=== PATIENT | female | born 1940 | race Caucasian/White ===

== ENCOUNTER → 2016-09-04 | Outpatient (CLI) | payer OTHER ==
[~2016-09-04] MED LIST: ACETAMINOPHEN PR; ARMOUR THYROID15 MG; ASPIRIN EC81 M1 PO; ASPIRIN PO; ASPIRIN81 MG PO; ATENOLOL PO; AZO CRANBERRY250 MG PO; AZO CRANBERRY450 M1 PO; BACTRIM DS TABL1 TA1 PO; BENADRYL ALLERG25 M1 PO; CALCIUM 500 +1 EAC6 PO; CALCIUM 500 +1 EACH PO; CALCIUM 600 +1 EAC5 PO; CALTRATE PLUS T1 TAB PO; CERTAGEN PO; CETIRIZINE HCL10 MG PO; CITRACAL + D CA1 TA1 PO; CITRACAL PLUS T1 TAB PO; CITRACAL200 M1 PO; CITRUCEL500 MG; CITRUCEL500 MG PO; D-20002000 UNIT PO; FAMOTIDINE PO; FIBER CHOICE PO; FIBER GUMMIES2 GM PO; FIBER GUMMIES2.5 GM PO; FLAGYL PO; FLONASE 0.05% N16 G1; FLONASE 0.05% N16 GM; FLONASE16 GM; LEVOTHYROXINE100 MCG PO; LEVOXYL100 MCG PO; LEVOXYL112 MC1 PO; LEVSIN0.125 M2 PO; MEDROL PO; MIRALAX17 GM DOB; MIRALAX17 GM PO; MULTI VITAMIN1 EACH PO; MULTIPLE VITAM1 EAC1 PO; MYLANTA125 MG PO; MYLANTA400 MG PO; OYSTER CALCIUM500 MG PO; PREDNISONE PO; PROTONIX IVP; RESTASIS32 EA OP; SKELAXIN PO; ST JOSEPH ASPIR81 M1 PO; SYNTHROID PO; SYNTHROID112 MCG PO; SYNTHROID125 PO; THERA-TABS M C1 EACH PO; UNITHROID100 MCG PO; VITAL-D RX TABL1 TAB PO; VITAMIN C PO; VITAMIN D2000 UNI1 PO; VITAMIN D2000 UNIT PO; ZOFRAN ODT4 MG PO; ZYRTEC PO; ZYRTEC10 M1 PO; ZYRTEC10 M2 PO; ZYRTEC5 M1
--- NOTE | ~2016-09-04 | CT57 ---
[facility] A Service of [facility] RADIOLOGY TEXT RESULTS PATIENT: GOSIA EPPS LOCATION: [facility] : 44 UNIT #: [id number] AGE: [address]: Mamadou Kwan MD SEX: F ORDER DR: [id number] [facility] [address] [place], [place] [address] [id number] O MR#: [id number] Acc #: [id number] NAME: GOSIA EPPS : 1940 SEX: F STUDY DATE/TIME: 09/04/2016 12:57 UNIT: [facility] ROOM: STUDY DESCRIPTION: CT Chest Wo Cont Attending Physician: Mamadou Kwan M.D. Ordering Physician: Mamadou Kwan M.D. Primary Care Physician: Rodolfo Zimmerman M.D. MEDICAL IMAGING REPORT This report is preliminary unless electronic signature is present EXAM CT chest 09/04/2016 INDICATIONS Right upper lobe pulmonary nodule. Restaging. TECHNIQUE CT of the thorax without contrast. Coronal and sagittal reconstructions were obtained. This CT exam was performed with one or more of the following radiation dose reduction techniques: automatic exposure control, adjustment of mA and/or kV according to patient size, and iterative reconstruction. COMPARISON CT thorax dated 01/03/2016, 06/14/2015, 06/06/2014 FINDINGS A 6 mm pulmonary nodule in the anterior aspect of the right upper lobe has decreased in size from the March 2014 comparison. The nodule measured 1.1 cm at that time. Nodule has partially calcified confirming a benign etiology. No suspicious pulmonary findings are identified. There are some benign calcified granulomas within the lungs. Central airways are patent. No focal consolidation. Cardiac size is normal. No pericardial or pleural effusion. Thoracic aorta is normal. There is a benign hemangioma in the T10 vertebra. No new osseous abnormalities. IMPRESSION 1. Benign right upper lobe pulmonary nodule has decreased in size from [facility] A Service of [facility] & [facility] RADIOLOGY TEXT RESULTS PATIENT: GOSIA EPPS LOCATION: [facility] : 42 UNIT #: [id number] AGE: [address]: Mamadou Kwan MD SEX: F ORDER DR: March 2014 and has now partially calcified confirming a benign etiology. 2. No new or suspicious pulmonary findings. Dictated by... Lambert Mendoza M.D. THIS IS AN ELECTRONICALLY VERIFIED REPORT Lambert Mendoza M.D. at 09/05/2016 7:50 AM BRIDGER/ephraim TD: 09/04/2016 18:23 JOB #: [id number] MEDICAL IMAGING REPORT Page 1 of 1 COPY
== END | disposition home or self-care (01) ==
LOC: CCAT 12:26
DX: R91.1 Solitary pulmonary nodule (principal)
CPT/HCPCS: 71250

== ENCOUNTER → 2016-11-10 | Day surgery (SDC) | payer OTHER ==
--- NOTE | ~2016-11-10 | OR ---
Unit #: [id number] #: [id number] Patient: GOSIA EPPS [id number] [address] [address] [id number] O MR#: [id number] NAME: GOSIA EPPS ROOM: Date of Procedure: 11/10/2016 Admission Date: 11/10/2016 Surgeon: Singh Quigley M.D. : 1940 Attending Physician: Singh Quigley M.D. Primary Care Physician: Rodolfo Zimmerman M.D. OPERATIVE REPORT PRIMARY CARE PHYSICIAN Dr. Rodolfo Zimmerman. PREOPERATIVE DIAGNOSES The patient has come for surveillance colonoscopy. 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 PROCEDURES PERFORMED Colonoscopy and polypectomy. POSTOPERATIVE DIAGNOSES 1. Single sessile polyp in the cecum. This was about 6 to 7 mm in size and was removed using snare polypectomy. 2. The site of previous polypectomy with high-grade dysplasia, which was marked with Jade ink was normal. There being no residual polyp tissue. 3. Mild sigmoid and descending colon diverticulosis. 4. Rest of the examination up to cecum was normal. The quality of the prep was excellent. RECOMMENDATIONS 1. Follow up results of polyp histology. 2. Consider repeat colonoscopy in 5 years. SEDATION USED MAC. DESCRIPTION OF PROCEDURE Following detailed explanation of the potential risks and complications of a colonoscopy, namely perforation, bleeding, and complications related to sedation, the patient was brought to GI lab and laid in the left lateral decubitus position. A digital rectal examination was performed, which was normal. Lubricated tip of the Olympus video colonoscope was inserted through the anus and advanced under direct vision. The scope was advanced and passed up to sigmoid into descending colon. Scant small diverticula were noticed in this area. The scope tip was then navigated all the way up to cecum with visualization of ileocecal valve and the appendiceal orifice. Preparation was excellent with good visualization and photodocumentation was obtained. Successive segments of the colonic mucosa were examined upon withdrawal. A single sessile polyp was noted in the cecum. This was about 7 mm in size. It was removed using snare polypectomy. The polyp was retrieved and sent for histology. No Unit #: [id number] #: [id number] Patient: GOSIA EPPS additional polyps were noted. Other than the scant diverticula seen in the left side, no additional abnormalities were found. The patient did not have any hemorrhoids at anal verge. Careful attention was paid to the area of the previous polypectomy with high-grade dysplasia, which was tattooed and the area appeared completely clear of any residual polyp tissue. The patient did not have any internal hemorrhoids at anal verge. The scope was then withdrawn. The patient returned to the recovery area. She tolerated the procedure without any postprocedure complications. Dictated by... Ame Herbert/darcy TD: 11/10/2016 23:01 JOB #: [id number] OPERATIVE REPORT Page 1 of 1 X Singh Quigley MD X PROCEDURE OPERATIVE NOTE
== END | disposition home or self-care (01) ==
LOC: COPS 10:08
DX: Z12.11 Encounter for screening for malignant neoplasm of colon (principal); D12.0 Benign neoplasm of cecum; K57.30 Diverticulosis of large intestine without perforation or abscess without bleeding; E03.9 Hypothyroidism, unspecified; J45.909 Unspecified asthma, uncomplicated; K21.9 Gastro-esophageal reflux disease without esophagitis; M81.0 Age-related osteoporosis without current pathological fracture; Z86.718 Personal history of other venous thrombosis and embolism; Z87.19 Personal history of other diseases of the digestive system; Z86.010 Personal history of colon polyps; Z87.440 Personal history of urinary (tract) infections; Z86.79 Personal history of other diseases of the circulatory system; Z88.1 Allergy status to other antibiotic agents; Z88.2 Allergy status to sulfonamides; Z88.6 Allergy status to analgesic agent; Z88.8 Allergy status to other drugs, medicaments and biological substances; Z91.041 Radiographic dye allergy status; Z79.82 Long term (current) use of aspirin; Z79.899 Other long term (current) drug therapy; Z90.13 Acquired absence of bilateral breasts and nipples; Z90.710 Acquired absence of both cervix and uterus; Z90.49 Acquired absence of other specified parts of digestive tract; Z98.890 Other specified postprocedural states
CPT/HCPCS: 82947; 88305

== ENCOUNTER 2016-12-23 23:38 | Emergency (ER) | payer OTHER ==
[~2016-12-23] VITALS: Ht 165.1 cm; Wt 61.7 kg
--- NOTE | ~2016-12-23 | CR72 ---
[facility] A Service of [facility] & [facility] RADIOLOGY TEXT RESULTS PATIENT: GOSIA EPPS LOCATION: [facility] : 42 UNIT #: [id number] AGE: [address]: Skyler Greer MD SEX: F ORDER DR: [id number] [facility] [address] [place], [place] [address] [id number] MR#: [id number] Acc #: [id number] NAME: GOSIA EPPS : 1940 SEX: F STUDY DATE/TIME: 12/24/2016 01:12 UNIT: [facility] ROOM: STUDY DESCRIPTION: CR Chest Single View Portable Attending Physician: Skyler Greer Referring Physician: Rodolfo Zimmerman M.D. Ordering Physician: Skyler Greer, [id number] Primary Care Physician: Rodolfo Zimmerman M.D. MEDICAL IMAGING REPORT This report is preliminary unless electronic signature is present EXAM Portable chest 12/24/2016 at 0112 INDICATION Nausea, chest pain, and headache for 1 week. History of breast cancer. FINDINGS AP portable chest compared with 05/20/2016. Cardiac and mediastinal contours are normal. The lungs are clear except for a few granulomatous calcifications. There is no pneumothorax. IMPRESSION No active disease and no significant interval change. Dictated by... León Tsang Jr., M.D. THIS IS AN ELECTRONICALLY VERIFIED REPORT León Tsang Jr., M.D. at 12/24/2016 9:39 PM MARK/jesus TD: 12/24/2016 10:03 JOB #: [id number] MEDICAL IMAGING REPORT Page 1 of 1 COPY
--- NOTE | ~2016-12-23 | EKG ---
PATIENT: GOSIA EPPS UNIT #: [id number] Ventricular Rate: 73 BPM Atrial Rate: 73 BPM P-R Interval: 138 ms QRS Duration: 80 ms Q-T Interval: 376 ms QTC Calculation(Bezet): 414 ms P [place]: 74 degrees Calculated R [place]: 62 degrees Calculated T [place]: 65 degrees Diagnosis Line: Normal sinus rhythm Diagnosis Line: Possible Left atrial enlargement Diagnosis Line: Borderline ECG Diagnosis Line: No previous ECGs available Diagnosis Line: Confirmed by CELY BAKER MD ([id number]) on Diagnosis Line: 12/24/2016 11:58:03 AM INTERPRETING MD: OLIVIA BURNS
[~2016-12-23 23:38] MED LIST changes: -D-20002000 UNIT PO; -MIRALAX17 GM PO; -MULTIPLE VITAM1 EAC1 PO; -SYNTHROID112 MCG PO
[2016-12-24 00:38] LABS: BASOPHIL# 0.1 X10e3 (0-0.3); BASOPHIL% 0.6 % (0-2.5); EOSINOPHIL% 0.4 % (0.0-7.0); HEMATOCRIT 43.6 % (35.0-45.0); HEMOGLOBIN 14.2 gm/dL (12.0-16.0); LYMPHOCYTE# 1.7 X10e3 (1.0-3.5); MEAN CELL VOLUME 90.4 FL (83-96); MEAN CORPUSCULAR HEMOGLOBIN 29.5 PG (28-34); MEAN CORPUSCULAR HGB CONC 32.6 g/dL (30-36); MEAN PLATELET VOLUME 8.4 FL (6.5-11.5); MONOCYTE# 0.6 X10e3 (0-1.0); MONOCYTE% 7.1 % (3.0-12.0); NEUTROPHIL# 6.5 X10e3 (1.5-7.1); NEUTROPHIL% 72.9 % (40-75); PLATELET COUNT 213 X10e3 (140-420); RED BLOOD COUNT 4.82 X10e (3.90-5.30); RED CELL DISTRIBUTION WIDTH 14.4 % (11.0-15.5); WHITE BLOOD COUNT 8.9 X10e3 (4.0-10.5)
[2016-12-24 00:40] LABS: DIFF IND NO
[2016-12-24 00:41] LABS: POC - CKMB <1.0 ng/mL (0.0-7.9); POC - TROPONIN <0.05 ng/mL (<=0.05)
[2016-12-24 00:50] LABS: URINE SOURCE CLEAN CATCH
[2016-12-24] MEDS ORDERED: AZO CRANBERRY250 MG PO (00:53)
[2016-12-24] MEDS ORDERED: D-20002000 UNIT PO (00:53)
[2016-12-24] MEDS ORDERED: ASPIRIN81 MG PO (00:53)
[2016-12-24] MEDS ORDERED: ZYRTEC10 M1 PO (00:53)
[2016-12-24] MEDS ORDERED: MIRALAX17 GM PO (00:54)
[2016-12-24] MEDS ORDERED: SYNTHROID112 MCG PO (00:54)
[2016-12-24] MEDS ORDERED: MULTIPLE VITAM1 EAC1 PO (00:54)
[2016-12-24] MEDS ORDERED: FIBER GUMMIES2 GM PO (00:54)
[2016-12-24 00:55] LABS: URINE APPEARANCE CLEAR; URINE BILIRUBIN NEG (NEG); URINE BLOOD NEG (NEG); URINE COLOR YELLOW; URINE GLUCOSE NEG (NEG); URINE KETONE NEG (NEG); URINE LEUKOCYTE ESTERASE NEG (NEG); URINE NITRATE NEG (NEG); URINE PH 6.5 (5-8); URINE PROTEIN NEG (NEG); URINE SPECIFIC GRAVITY 1.009 (1.003-1.035); URINE UROBILINOGEN 0.2 MG/DL (NEG)
[2016-12-24 00:57] LABS: CULTURE INDICATED? NO
[2016-12-24 01:00] LABS: ALBUMIN SERUM 4.2 g/dL (3.5-5.0); BILIRUBIN, DIRECT 0.1 mg/dL (0.0-0.2); BILIRUBIN,INDIRECT 0.8 mg/dL (0.0-0.9); BILIRUBIN,TOTAL 0.9 mg/dL (0.2-2.0); CALCIUM SERUM 9.4 mg/dL (8.4-10.2); CREATININE SERUM 0.8 mg/dL (0.6-1.4); GLOM FILT RATE Estimated 72.7 mL/min (>60); POTASSIUM 3.5 mmol/L (3.5-5.1); PROTEIN TOTAL SERUM 6.8 g/dL (6.0-8.3)
[2016-12-24 02:29] LABS: POC - CKMB <1.0 ng/mL (0.0-7.9); POC - TROPONIN <0.05 ng/mL (<=0.05)
== END 2016-12-24 03:00 | disposition home or self-care (01) ==
LOC: CED 23:38
PROVIDERS: Emergency Medicine
DX: R07.89 Other chest pain (principal); R42 Dizziness and giddiness; Z79.82 Long term (current) use of aspirin; Z79.4 Long term (current) use of insulin; Z79.899 Other long term (current) drug therapy; Z88.8 Allergy status to other drugs, medicaments and biological substances; Z88.5 Allergy status to narcotic agent; Z88.1 Allergy status to other antibiotic agents; Z91.041 Radiographic dye allergy status
CPT/HCPCS: 36415; 71010; 80048; 80076; 81003; 82553; 84484; 85025; 93005; 96361; 96374; 99285; J2405